=== PATIENT | female | born 1965 | race Caucasian/White ===

== ENCOUNTER 2019-01-15 08:58 | Day surgery (SDC) | payer BC, OTHER ==
[2019-01-15] MEDS ORDERED: Propofol 200 MG/20 ML SDV IV ONE (08:59)
[2019-01-15] MEDS ORDERED: Midazolam 1 MG/ML 2 ML SDV IV ONE (08:59)
[2019-01-15] MEDS ORDERED: Sodium Chloride 0.9% 10 ML Syringe FLUSH PRN (09:00)
[2019-01-15] MEDS ORDERED: Sodium Chloride 0.9% 1,000 ML IV SCH (09:00)
[2019-01-15] MEDS ORDERED: Midazolam 1 MG/ML 2 ML SDV ONE (10:19)
[2019-01-15] MEDS ORDERED: Propofol 200 MG/20 ML SDV ONE (10:20)
--- NOTE | 2019-01-15 10:23 | PCM.PN ---
- General Info Date of Service: 01/15/19 - Review of Systems Systems Review Comment:: 53-year-old female referred for colonoscopy. She has a recent history of unexplained diarrhea. She has often 10 stools per day. Her last colonoscopy was approximately 7 years ago. She is medically stable to proceed today. Her recent history and physical is reviewed and no significant changes are noted. I discussed the proposed colonoscopy with the patient and she agrees to proceed accepting risks. - Patient Data Vitals - Most Recent: Last Vital Signs Temp 97.3 F 01/15/19 09:00 Pulse 96 01/15/19 09:00 Resp 18 01/15/19 09:00 BP 120/67 01/15/19 09:00 Pulse Ox 97 01/15/19 09:00 Weight - Most Recent: 90.718 kg Lab Results Last 24 Hours: Laboratory Results - last 24 hr 01/15/19 Range/Units 09:19 POC Glucose 143 H (74-106) mg/dl Med Orders - Current: Current Medications Sodium Chloride (Normal Saline) 1,000 mls @ 50 mls/hr IV ASDIRECTED VERA Last Admin: 01/15/19 09:40 Dose: 50 mls/hr Sodium Chloride (Saline Flush) 10 ml FLUSH Q8HR PRN PRN Reason: keep vein open - Problem List Review Problem List Initiated/Reviewed/Updated: Yes - My Orders Last 24 Hours: My Active Orders 01/14/19 11:09 Resuscitation Status Routine 01/15/19 09:00 Blood Glucose Check, Bedside [RC] UPON Patient to Empty Bladder [RC] ASDIRECTED Peripheral IV Care [RC] . DIRECTED Vital Signs [RC] PER UNIT ROUTINE Sodium Chloride 0.9% [Normal Saline] 1,000 ml IV ASDIRECTED Sodium Chloride 0.9% [Saline Flush] 10 ml FLUSH Q8HR PRN Peripheral IV Insertion Adult [OM.PC] Routine 01/15/19 10:30 Verify Patient Consent Obtain [RC] ASDIRECTED 01/15/19 Breakfast Nothing Per Oral Diet [DIET] - Assessment Assessment:: Unexplained diarrhea - Plan Plan:: Colonoscopy
--- NOTE | 2019-01-15 11:08 | PCM.OPNOTE ---
- General Post-Op/Procedure Note Date of Surgery/Procedure: 01/15/19 Operative Procedure(s): Colonoscopy with Polypectomy and Biopsy Findings: Sigmoid colon polyp with otherwise normal appearing colon and terminal ileum Pre Op Diagnosis: Diarrhea Post-Op Diagnosis: Diarrhea. Colon polyp Anesthesia Technique: MAC Primary Surgeon: Dayne Razo Pathology: Sigmoid colon polyp Biopsies of terminal ileum and colon Output, Urine Amount: 0 EBL in mLs: 4 Complications: None Condition: Good
[2019-01-15 12:25] VITALS: BP 86/67
--- NOTE | 2019-01-15 17:24 | OR ---
DATE OF SURGERY: 01/15/2019 SURGEON: Dayne Razo MD PREOPERATIVE DIAGNOSIS: Diarrhea. POSTOPERATIVE DIAGNOSIS: Diarrhea and colon polyp. OPERATION PERFORMED: Colonoscopy with polypectomy and biopsy. INDICATIONS FOR SURGERY: This 53-year-old female has developed unexplained diarrhea, which has persisted for several weeks. She comes now for diagnostic colonoscopy. FINDINGS: No visible signs of inflammation are seen in the patient's colon. Her terminal ileum also appeared normal. The patient did have one polyp in the sigmoid colon, 15 cm from the anal verge, this was a 7-mm semi-pedunculated polyp. Colon and rectum otherwise appeared normal. DESCRIPTION OF PROCEDURE: The patient was taken to the operating room. She was given intravenous sedation and with her in the left lateral decubitus position, digital rectal exam was performed showing no rectal masses. The Olympus colonoscope was inserted into the rectum. Retroflexed examination of the rectal canal was performed. The scope was then carefully advanced under direct visualization through the entire length of the colon until cecum was reached. Cecal acquisition was confirmed by noting the normal internal cecal anatomy including the appendiceal orifice and ileocecal valve. The light was also noted to transilluminate the abdominal wall in the right lower quadrant. The ileocecal valve was cannulated and the terminal ileum was examined. This area appeared normal. Biopsies were taken randomly of the ileal mucosa. The scope was then slowly withdrawn, sequentially re-examining the colonic segments. During withdrawal of the scope, random biopsies of the right and left sides of the colon were taken to evaluate her symptoms of diarrhea. In the sigmoid colon during withdrawal of the scope, the above-described polyp was identified. This was removed with a cautery snare and retrieved into a polyp trap. After the exam had been completed and with no sign of any complication, the scope was removed and the patient was taken from the operating room in satisfactory condition. ESTIMATED BLOOD LOSS: 4 mL. COMPLICATIONS: None. PROGNOSIS: Good. /[id number]/MODL
== END 2019-01-15 12:10 | disposition home or self-care (01) ==
LOC: KA.SDS 08:58
PROVIDERS: ATTEND Surgery
DX: K52.832 Lymphocytic colitis (principal); K51.40 Inflammatory polyps of colon without complications; Z87.891 Personal history of nicotine dependence; Z79.82 Long term (current) use of aspirin; Z79.84 Long term (current) use of oral hypoglycemic drugs; Z79.899 Other long term (current) drug therapy; Z88.1 Allergy status to other antibiotic agents; Z88.0 Allergy status to penicillin; Z88.8 Allergy status to other drugs, medicaments and biological substances
CPT/HCPCS: 82962; 93005; J2250; J2704; J7030

== ENCOUNTER 2021-12-04 14:43 | Emergency (ER) | payer BC, OTHER ==
[2021-12-04 15:04] VITALS: BP 125/75; PULSE 99
--- NOTE | 2021-12-04 15:23 | CR ---
[id number] RAD/RAD Knee Left 1-2V EXAM: RAD Knee Left 1-2V INDICATION: Left knee pain. COMPARISON: March 18, 2021. DISCUSSION: Moderate tricompartmental osteoarthritis. Trace joint effusion. Varicosities. No acute fracture or dislocation. IMPRESSION: 1. Moderate osteoarthritis with minimal interval change. Wei Arce MD 12/04/21 [id number] Thank you for allowing us to participate in the care of your patient.
--- NOTE | 2021-12-04 15:35 | EDM.PDOC ---
ED HPI GENERAL MEDICAL PROBLEM - General Chief Complaint: Lower Extremity Injury/Pain Stated Complaint: LEFT KNEE PAIN Time Seen by Provider: 12/04/21 15:10 Source of Information: Reports: Patient History Limitations: Reports: No Limitations - History of Present Illness INITIAL COMMENTS - FREE TEXT/NARRATIVE: 56-year-old female presents emergency room with chronic left knee pain. She is had discomfort in her knee began in February. She is states that she works at the [employer] and is on her feet all day long through her shift. She began to notice increasing pain and discomfort on the medial joint line. She has occasional swelling. She denies mechanical symptoms. She has had a prior knee [place]rosc[place] [address] Quijano. She is tried Tylenol and takes Celebrex 200 mg twice daily. She has had 2 separate doses of oral prednisone with only minimal relief. She is never had a intra-articular corticosteroid injection. She also try CBD salve which she feels is helpful. She denies any numbness or tingling or leg weakness complaints. She is seeing physical therapy for some strengthening exercises. She does not wear a brace for her knee. Onset: Unknown/Unsure Duration: Chronic Location: Reports: Lower Extremity, Left (knee) Quality: Reports: Ache Severity: Moderate Worsens with: Reports: Movement Left Knee Pain Score (Numeric/FACES): 7 - Related Data Allergies Allergy/AdvReac Type Severity Reaction Status Date / Time cyclosporine [From Restasis] Allergy Cannot Verified 12/04/21 15:42 Remember erythromycin base Allergy UNKNOWN Verified 12/04/21 15:42 lifitegrast [From Xiidra] Allergy Cannot Verified 12/04/21 15:42 Remember Penicillins Allergy UNKNOWN Verified 12/04/21 15:42 nuts Allergy Anaphylactic Uncoded 12/04/21 15:42 Shock Home Meds: Home Meds Aspirin [Halfprin] 81 mg PO BEDTIME 01/30/15 [History] Simvastatin 1 tab PO BEDTIME 01/30/15 [History] busPIRone [Buspar] 10 mg PO BID 01/30/15 [History] Fish Oil/[place]-3 Fatty Acids [Fish Oil 1,000 MG] 1,000 mg PO DAILY 01/01/17 [History] Lactobacillus Combo No.10 [Probiotic] 2 tab PO DAILY 01/01/17 [History] Albuterol Sulfate 2.5 mg NEB Q4H PRN 01/14/19 [History] Albuterol Sulfate [Proair Hfa] 1 - 2 puff INH Q4H PRN 01/14/19 [History] EPINEPHrine [Epinephrine] 0.3 mg IM ASDIRECTED 01/14/19 [History] Fluticasone Propionate [Flonase] 1 spray NASBOTH BID PRN 01/14/19 [History] Gabapentin [Neurontin] 100 mg PO BEDTIME 01/14/19 [History] Lidocaine 5% 1 applic TOP ASDIRECTED 01/14/19 [History] Lisinopril 20 mg PO DAILY 01/14/19 [History] Moexipril HCl [Moexipril] 15 mg PO DAILY 01/14/19 [History] glipiZIDE [Glipizide ER] 5 mg PO DAILY 01/14/19 [History] hydroCHLOROthiazide [Hydrochlorothiazide] 50 mg PO DAILY 01/14/19 [History] metFORMIN HCl [Metformin HCl] 1,000 mg PO BID 01/14/19 [History] Cranberry 400 mg PO BID 01/15/19 [History] Lysine 1,000 mg PO DAILY 01/15/19 [History] Melatonin [Vitajoy Melatonin] 5 mg PO BEDTIME 01/15/19 [History] Ubidecarenone [Coq-10] 100 mg PO DAILY 01/15/19 [History] Non-Formulary Medication [NF Drug] 2 each PO DAILY 03/25/19 [History] Past Medical History HEENT History: Reports: Allergic Rhinitis, Impaired Vision Cardiovascular History: Reports: High Cholesterol, Hypertension Respiratory History: Reports: None Gastrointestinal History: Reports: Chronic Diarrhea, Colon Polyp Genitourinary History: Reports: None [employer] History: Reports: Endometriosis, Musculoskeletal History: Reports: Arthritis, Back Pain, Chronic, Osteoarthritis Neurological History: Reports: None Psychiatric History: Reports: Anxiety Endocrine/Metabolic History: Reports: Diabetes, Gestational, Diabetes, Type II Hematologic History: Reports: None Immunologic History: Reports: None Oncologic (Cancer) History: Reports: None Dermatologic History: Reports: None - Infectious Disease History Infectious Disease History: Reports: Chicken Pox, Influenza, Measles, Mumps - Past Surgical History HEENT Surgical History: Reports: Adenoidectomy, Oral Surgery, Polypectomy, Tonsillectomy Cardiovascular Surgical History: Reports: None Respiratory Surgical History: Reports: None GI Surgical History: Reports: Colonoscopy, Polypectomy Female Surgical History: Reports: Section, Hysterectomy Neurological Surgical History: Reports: None Oncologic Surgical History: Reports: None Dermatological Surgical History: Reports: None Social & Family History - Family History Cardiac: Reports: High Cholesterol, Hypertension, NM Psychiatric: Reports: Anxiety Endocrine/Metabolic: Reports: Diabetes, type II Oncologic: Reports: Lung - Caffeine Use Caffeine Use: Reports: Soda, Tea Other Caffeine Use: coke zero Review of Systems - Review of Systems Review Of Systems: Comprehensive ROS is negative, except as noted in HPI. ED EXAM, GENERAL - Physical Exam Exam: See Below Exam Limited By: No Limitations General Appearance: Alert, WD/WN, No Apparent Distress, Other (Mild left an talgic gait) Head: Atraumatic Neck: Normal Inspection Respiratory/Chest: No Respiratory Distress Extremities: Normal Inspection, No Pedal Edema, Normal Capillary Refill, Other (Left knee exam shows tenderness across the medial joint line. There is mild effusion left knee. Knee range of motion is 5 to 125. No active varus valgus stresses. Skin is warm dry intact. Pulses are 2+ distally. No pain with gentle hip range of motion.) Neurological: Alert, Oriented, No Motor/Sensory Deficits Psychiatric: Normal Affect, Normal Mood Skin Exam: Warm, Dry, Intact, Normal Color, No Rash ED TRAUMA EXTREMITY PROCEDURES - Additional/Other Procedure(s) Other (Free Text) Procedure(s): Left knee was prepped with ChloraPrep. 21-gauge 1/2 in needle was used to inject 4 cc of 1% lidocaine and 40 of Kenalog intra-articularly along the superior lateral portal site left knee without difficulty patient taught procedure well. Band-Aid was placed over the portal site. Course - Vital Signs Last Recorded V/S: Last Vital Signs Temp 97.2 F 12/04/21 14:59 Pulse 99 12/04/21 14:59 Resp 20 12/04/21 14:59 BP 125/75 12/04/21 14:59 Pulse Ox 93 L 12/04/21 14:59 - Orders/Labs/Meds Meds: Medications Discontinued Medications Generic Name Dose Route Start Last Admin Trade Name Freq PRN Reason Stop Dose Admin Lidocaine HCl 5 ml 12/04/21 15:46 Lidocaine 1% 5 Ml Sdv INJECT 12/04/21 15:47 ONETIME ONE Triamcinolone Acetonide 40 mg 12/04/21 15:47 Triamcinolone Acetonide 40 Mg/Ml 1 Ml Sdv INJECT 12/04/21 15:48 ONETIME ONE - Radiology Interpretation Free Text/Narrative:: X-ray 2 views left knee weightbearing Indication: Left knee pain Comparison: March 18, 2021 Discussion: Moderate tricompartment osteoarthritis. Trace of joint effusion.. No acute fracture or dislocation. Impression: Moderate osteoarthritis with minimal interval change. - Re-Assessments/Exams Free Text/Narrative Re-Assessment/Exam: 12/04/21 16:22 Patient had excellent relief with the intra-articular injection Departure - Departure Time of Disposition: 16:10 Disposition: Home, Self-Care 01 Condition: Good Clinical Impression: Degenerative joint disease of left knee Qualifiers: Osteoarthritis type: primary Qualified Code(s): M17.12 - Unilateral primary osteoarthritis, left knee - Discharge Information Instructions: Preparing for Knee Replacement, Arthritis Referrals: Allison Beverly MD [Primary Care Provider] - Forms: ED Department Discharge Additional Instructions: 1. Activities as tolerated. 2. Continue with your Celebrex as needed. 3. 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 4. Tylenol for any pain as needed. 5. You are given a cortical steroid injection today. This may elevate your blood sugars as you are a type II diabetic. You need to monitor your blood sugars over the next 10 to 14 days. If the injection gives you good lasting relief this could be repeated by your orthopedist in 3 months. 6. If the injection is only temporary relief ultimately he may be heading towards total knee arthroplasty. You can follow-up with your orthopedist. Sepsis Event Note (ED) - Evaluation Sepsis Screening Result: No Definite Risk - Focused Exam Vital Signs: Vital Signs Temp Pulse Resp BP Pulse Ox 12/04/21 14:59 97.2 F 99 20 125/75 93 L 12/04/21 14:50 97.2 F 99 20 125/75 93 L - Assessment/Plan Assessment:: Left knee DJD Plan: 1. Activities as tolerated. 2. Continue with your Celebrex as needed. 3. 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 4. Tylenol for any pain as needed. 5. You are given a cortical steroid injection today. This may elevate your blood sugars as you are a type II diabetic. You need to monitor your blood sugars over the next 10 to 14 days. If the injection gives you good lasting relief this could be repeated by your orthopedist in 3 months. 6. If the injection is only temporary relief ultimately he may be heading towards total knee arthroplasty. You can follow-up with your orthopedist.
[2021-12-04] MEDS ORDERED: Triamcinolone Acetonide 40 MG/ML 1 ML SDV INJECT ONE (15:47)
== END 2021-12-04 16:30 | disposition home or self-care (01) ==
LOC: KA.ED 14:43
DX: M17.12 Unilateral primary osteoarthritis, left knee (principal); E78.00 Pure hypercholesterolemia, unspecified; I10 Essential (primary) hypertension; Z88.0 Allergy status to penicillin; Z88.1 Allergy status to other antibiotic agents; Z88.8 Allergy status to other drugs, medicaments and biological substances; Z79.82 Long term (current) use of aspirin; Z79.899 Other long term (current) drug therapy
CPT/HCPCS: 20610; 73560-LT; 99283; 99283-25; J3301

== ENCOUNTER 2022-11-28 05:02 | Emergency (ER) | payer BC, OTHER ==
[2022-11-28 05:14] VITALS: BP 103/73
[2022-11-28] MEDS: Phenazopyridine 100 MG Tab PO ONE (05:20)
[2022-11-28 05:29] VITALS: PULSE 112
[2022-11-28] MEDS ORDERED: Sodium Chloride 0.9% 10 ML Syringe FLUSH PRN (05:39)
[2022-11-28] MEDS: Sodium Chloride 0.9% 1,000 ML IV ONE (06:00)
[2022-11-28 06:11] LABS: ANION GAP 13.2 mmol/L (5-15)
[2022-11-28] MEDS: Sodium Chloride 0.9% 1,000 ML ONE (06:20)
[2022-11-28 06:50] LABS: RESPIRATORY SYNCYTIAL VIR NAA NEGATIVE (NEGATIVE)
[2022-11-28 06:51] LABS: CORONAVIRUS COVID-19 NAA NEGATIVE (NEGATIVE)
[2022-11-28] MEDS: Oseltamivir 75 MG Cap PO ONE (07:02)
== END 2022-11-28 07:18 | disposition home or self-care (01) ==
LOC: KA.ED 05:02
DX: J10.1 Influenza due to other identified influenza virus with other respiratory manifestations (principal); R00.0 Tachycardia, unspecified; R30.0 Dysuria; I10 Essential (primary) hypertension; E78.00 Pure hypercholesterolemia, unspecified; E11.9 Type 2 diabetes mellitus without complications; F41.9 Anxiety disorder, unspecified; M19.90 Unspecified osteoarthritis, unspecified site; F17.210 Nicotine dependence, cigarettes, uncomplicated; Z20.822 Contact with and (suspected) exposure to COVID-19; Z79.82 Long term (current) use of aspirin; Z79.899 Other long term (current) drug therapy; Z88.1 Allergy status to other antibiotic agents; Z91.018 Allergy to other foods; Z88.8 Allergy status to other drugs, medicaments and biological substances
CPT/HCPCS: 0241U; 71046; 80053; 81001; 83605; 85025; 96360; 99283; A9270; J7030

== ENCOUNTER 2025-08-28 18:43 | Emergency (ER) | payer BC, OTHER ==
[2025-08-28 19:07] LABS: GLUCOSE,URINE NEGATIVE (NEGATIVE)
[2025-08-28 19:17] LABS: OCCULT BLOOD,URINE SMALL (NEGATIVE)
[2025-08-28 19:18] LABS: APPEARANCE,URINE SLIGHTLY CLOUDY (CLEAR); EPITHELIAL CELLS,URINE FEW /LPF
[2025-08-28] MEDS: Nitrofurantoin Monohydrate/Macrocrystalline 100 MG Cap PO ONE (19:33)
[2025-08-28 20:22] VITALS: BP 135/87; PULSE 68
== END 2025-08-28 19:42 | disposition home or self-care (01) ==
LOC: KA.ED 18:43
DX: N30.90 Cystitis, unspecified without hematuria (principal); E78.00 Pure hypercholesterolemia, unspecified; I10 Essential (primary) hypertension; E11.9 Type 2 diabetes mellitus without complications; Z87.891 Personal history of nicotine dependence; Z88.1 Allergy status to other antibiotic agents; Z88.0 Allergy status to penicillin; Z91.018 Allergy to other foods; Z88.8 Allergy status to other drugs, medicaments and biological substances; Z79.82 Long term (current) use of aspirin; Z79.899 Other long term (current) drug therapy; Z79.85 Long-term (current) use of injectable non-insulin antidiabetic drugs
CPT/HCPCS: 81001; 87086; 99283; A9270